=== PATIENT | male | born 2000 | race Caucasian/White ===

== ENCOUNTER 2021-11-29 23:45 | Emergency (ER) | payer OTHER ==
[~2021-11-29] VITALS: Ht 162.6 cm; Wt 63.5 kg
--- NOTE | ~2021-11-29 | EMS ---
[address] [address] EMS Patient Care Report Name: DARIEL RUBALCAVA Room #: DEP ELENITA Guadalupe#: [id number] Admission: 11/29/21 Attend Phys: Discharge: 11/30/21 Date of : [birth year] Report #: [id number] THIS REPORT FOR: //name// Report Transmitted: 12/03/2021 13:06 EMS Care Summary [place], [place]/[facility] Incident [id number] @ 11/29/2021 23:09 Incident Location [address] [phone] Patient DARIEL RUBALCAVA Male, 21 Years 2000 Patient Address [address] [phone] Patient History Asthma,Hypertension (HTN), Patient Allergies No known allergies, Patient Medications Albuterol, Chief Complaint Asthma Attack Disposition Transported No Lights/[place] Reason Breathing Problem Transported To [facility] Narrative Dispatched to the scene of a 21 year old male with shortness of breath. Upon arrival, met [facility]42 on scene and they stated patient has a known hx of asthma and was satting in the 80s on arrival. Patient was hot, diaphoretic, and pale. Patient had audible expiratory wheezing and was unable to speak in complete [address] [address] EMS Patient Care Report Name: DARIEL RUBALCAVA Room #: DEP ELENITA Guadalupe#: [id number] Admission: 11/29/21 Attend Phys: Discharge: 11/30/21 Date of : [birth year] Report #: [id number] sentences. Patient was carried to the cot, secured, and loaded into the ambulance. An ALS assessment was performed and vitals were monitored. A duoneb tx was administered, a 20-gauge IV was established, and 125 mg of solumedrol was administered. Patient's breathing improved, but wheezing was still present on auscultation. Upon hospital arrival, patient was taken in on the cot, moved to the hospital bed, bed rails were raised, and patient care was transferred to the receiving nurse. Initial Vitals @23:22P: 147, @PTAP: 153,R: 30,BP: 168/110,SpO2: 80, @23:29P: 128,R: 26,BP: 164/80,Pain: 0/10,GCS: 15,SpO2: 95,Revised Trauma: 12,CA Suspected: false @23:23P: 151,R: 30,BP: 196/118,Pain: 0/10,GCS: 15,Glucose: 128,SpO2: 88,Revised Trauma: 11,CA Suspected: false Assessments @23:16MENTAL:SKIN:Diaphoresis,Hot,Pale,HEENT:Head/Face: No Abnormalities,Neck/Airway: No Abnormalities,LUNG SOUNDS:General: No Abnormalities,ABDOMEN:General: No Abnormalities,PELVIS//GI:No Abnormalities,EXTREMITIES:Capillary Refill: Right Upper: < 2 Sec,Left Arm: No Abnormalities,Right Arm: No Abnormalities,Left Leg: No Abnormalities,Right Leg: No Abnormalities,PULSE:Radial: 2+ Normal,NEURO:No Abnormalities,@23:27MENTAL:Person Oriented,Event Oriented,Place Oriented,Time Oriented,SKIN:Hot,HEENT:Head/Face: No Abnormalities,Eyes: No Abnormalities,Neck/Airway: No Abnormalities,LUNG SOUNDS:General: No Abnormalities,Left Upper: No Abnormalities,Right Upper: No Abnormalities,Left Lower: No Abnormalities,Right Lower: No Abnormalities,ABDOMEN:General: No Abnormalities,Left Upper: No Abnormalities,Right Upper: No Abnormalities,Left Lower: No Abnormalities,Right Lower: No Abnormalities,PELVIS//GI:No Abnormalities,EXTREMITIES:Left Arm: No Abnormalities,Right Arm: No Abnormalities,Left Leg: No Abnormalities,Right Leg: No Abnormalities,PULSE:NEURO:No Abnormalities, Impression Asthma Procedures @23:16 ALS Assessment Response: UnchangedSucceeded @23:18 3-Lead ECG Response: UnchangedSucceeded @23:17 Oxygen FlowRate: 8 Device: Non Re-breather Mask (NRB) Response: ImprovedSucceeded @23:17 Albuterol - 2.5 Milligrams (mg) - Nebulized Response: Improved @23:17 Atrovent - 0.5 Milligrams (mg) - Nebulized Response: Improved @23:30 Albuterol - 2.5 Milligrams (mg) - Nebulized Response: Improved @23:19 IV Therapy - Saline Lock 5cc (20 ga) Site: Antecubital-Left Response: [facility] [address] [place] [address] EMS Patient Care Report Name: DARIEL RUBALCAVA Room #: DEP ELENITA Guadalupe#: [id number] Admission: 11/29/21 Attend Phys: Discharge: 11/30/21 Date of : [birth year] Report #: [id number] UnchangedSucceeded @23:20 Solu-Medrol - 125 Milligrams (mg) - Intravenous (IV) Response: Improved @23:35 Oxygen FlowRate: 5 Device: Nasal Cannula (NC) Response: UnchangedSucceeded Timeline MOBILE TESTER,BP: 168/110 M,PULSE: 153,RR: 30 R,SPO2: 80 Ox,ETCO2: ,BG: ,PAIN: ,GCS: , 23:07,Call Received 23:07,Dispatch Notified 23:09,Dispatched 23:10,En Route 23:15,On Scene 23:16,At Patient 23:16,ALS Assessment,Response: UnchangedSucceeded, 23:17,Oxygen FlowRate: 8 Device: Non Re-breather Mask (NRB) Response: ImprovedSucceeded, 23:17,Albuterol - 2.5 Milligrams (mg) - Nebulized,Response: Improved 23:17,Atrovent - 0.5 Milligrams (mg) - Nebulized,Response: Improved 23:18,3-Lead ECG,Response: UnchangedSucceeded, 23:19,IV Therapy - Saline Lock 5cc 20 ga Site: Antecubital-Left,Response: UnchangedSucceeded, 23:20,Solu-Medrol - 125 Milligrams (mg) - Intravenous (IV),Response: Improved 23:22,BP: / M,PULSE: 147,RR: R,SPO2: Ox,ETCO2: ,BG: ,PAIN: ,GCS: , 23:23,BP: 196/118 M,PULSE: 151,RR: 30 R,SPO2: 88 Ox,ETCO2: ,B,PAIN: 0,GCS: 15, 23:27,Depart Scene 23:29,BP: 164/80 M,PULSE: 128,RR: 26 R,SPO2: 95 Ox,ETCO2: ,BG: ,PAIN: 0,GCS: 15, 23:30,Albuterol - 2.5 Milligrams (mg) - Nebulized,Response: Improved 23:35,Oxygen FlowRate: 5 Device: Nasal Cannula (NC) Response: UnchangedSucceeded, 23:36,At Destination 23:48,Call Closed Disclaimer [email or web address] Copyright 2021 [employer] This EMS Care Summary contains data elements from the applicable legal record (which may be displayed differently). It is designed to provide pertinent information for the following purposes: continuity of care, clinical quality, and state data reporting. The complete legal record is available to ED staff and administrators of the receiving hospital in [employer] Patient Tracker. All data is provided "as is."
[2021-11-30 00:27] LABS: ABSOLUTE NEUTROPHILS 9.2 thou/uL (1.4-8.2); BASOPHILS 1.1 % (0.0-2.0); EOSINOPHILS 4.3 % (0.0-3.0); HEMATOCRIT 48.6 % (42.0-52.0); HEMOGLOBIN 16.1 gm/dL (14.0-18.0); LYMPHOCYTES 24.1 % (24.0-44.0); MCH 29.4 pg (26.0-34.0); MCHC 33.1 g/dL (28.0-37.0); MCV 88.9 fL (80.0-100.0); PLATELET COUNT 344 thou/uL (150-400); POLYS 62.5 % (36.0-66.0); RBC 5.47 mil/uL (4.50-6.00); RDW 13.7 % (10.5-14.5); WBC 14.7 thou/uL (4.0-11.0)
[2021-11-30 00:30] LABS: CALCIUM 8.5 mg/dL (8.5-10.1); CREATININE 1.2 mg/dL (0.7-1.3); POTASSIUM 3.3 mmol/L (3.5-5.1)
[2021-11-30 01:17] VITALS: BP 118/59
== END 2021-11-30 01:55 | disposition home or self-care (01) ==
LOC: ER 23:45
PROVIDERS: Emergency Medicine
DX: J45.909 Unspecified asthma, uncomplicated (principal); Z20.822 Contact with and (suspected) exposure to COVID-19